=== PATIENT | female | born 1980 | race Caucasian/White ===

== ENCOUNTER 2022-05-06 16:35 | Outpatient (CLI) | payer OTHER | END 2022-05-06 16:41 | disposition home or self-care (01) | LOC: RAD 16:35 | PROVIDERS: ATTEND Physical Medicine & Rehabilitation | DX: S93.401A Sprain of unspecified ligament of right ankle, initial encounter (principal); S92.351A Displaced fracture of fifth metatarsal bone, right foot, initial encounter for closed fracture ==

== ENCOUNTER 2022-08-03 09:38 | Outpatient (CLI) | payer OTHER | END 2022-08-03 09:50 | disposition home or self-care (01) | LOC: SONOGRAMA 09:38 | PROVIDERS: ATTEND Physical Medicine & Rehabilitation | DX: S86.301A Unspecified injury of muscle(s) and tendon(s) of peroneal muscle group at lower leg level, right leg, initial encounter (principal); S96.911A Strain of unspecified muscle and tendon at ankle and foot level, right foot, initial encounter ==

== ENCOUNTER 2022-08-03 13:05 | Outpatient (CLI) | payer OTHER | END 2022-08-03 13:15 | disposition home or self-care (01) | LOC: RAD 13:05 | PROVIDERS: ATTEND Physical Medicine & Rehabilitation | DX: S92.351A Displaced fracture of fifth metatarsal bone, right foot, initial encounter for closed fracture (principal) ==